=== PATIENT | male | born 1970 | race Caucasian/White ===

== ENCOUNTER 2019-04-06 06:39 | Day surgery (SDC) | payer OTHER ==
[~2019-04-06] VITALS: Ht 152.4 cm; Wt 70.0 kg
[~2019-04-06 06:39] MED LIST: SODIUM CHLORIDE 0.9% 1,000 ML IV ONE; SODIUM CHLORIDE 0.9% 1,000 ML ONE
[2019-04-06] MEDS ORDERED: LISI-661 PO (07:28)
[2019-04-06] MEDS ORDERED: FentaNYL CITRATE-PF 100 MCG/2 ML VIAL ONE (07:37)
[2019-04-06] MEDS ORDERED: MIDAZOLAM HCL 2 MG/2 ML VIAL ONE (07:37)
[2019-04-06] MEDS ORDERED: AMLO5TAB9 PO (07:45)
[2019-04-06] MEDS ORDERED: FAMO20 PO (07:45)
[2019-04-06] MEDS ORDERED: MYCO250C7 PO (07:45)
[2019-04-06] MEDS ORDERED: ATOR20TA86 PO (07:45)
[2019-04-06] MEDS ORDERED: LISI-662 PO (07:45)
[2019-04-06] MEDS ORDERED: MONT10TA21 PO (07:45)
[2019-04-06] MEDS ORDERED: ASPI-728 PO (07:45)
[2019-04-06] MEDS ORDERED: MethylPREDNISolone SOD SUCC 125 MG/2 ML VIAL ONE (09:02)
[2019-04-06] MEDS ORDERED: MethylPREDNISolone SOD SUCC 125 MG/2 ML VIAL IVP ONE (09:15)
[2019-04-06] MEDS ORDERED: ALBUTEROL SULFATE 2.5 MG/0.5 ML NEB SOLUTION NEB ONE (12:00)
[2019-04-06] MEDS ORDERED: LIDOCAINE 4% 50 ML SOLUTION TP ONE (12:00)
[2019-04-06] MEDS ORDERED: LIDOCAINE 2% 30 ML JELLY TP ONE (12:00)
[2019-04-06] MEDS ORDERED: BENZOCAINE 20% 50 MCG/SPRAY 57 GM TP ONE (12:00)
[2019-04-06] MEDS ORDERED: OXYGEN THERAPY IH SCH (20:00)
== END 2019-04-06 11:11 | disposition home or self-care (01) ==
LOC: SURGERY 06:39
PROVIDERS: ATTEND Internal Medicine Critical Care Medicine
DX: R05 Cough (principal); R04.2 Hemoptysis; J84.9 Interstitial pulmonary disease, unspecified; J47.9 Bronchiectasis, uncomplicated; J34.89 Other specified disorders of nose and nasal sinuses; J98.8 Other specified respiratory disorders; J38.4 Edema of larynx; B37.0 Candidal stomatitis; I10 Essential (primary) hypertension; E78.5 Hyperlipidemia, unspecified; Z79.899 Other long term (current) drug therapy; R19.00 Intra-abdominal and pelvic swelling, mass and lump, unspecified site
CPT/HCPCS: 31623; 31624; 71045; 87015; 87070 ×2; 87101; 87205; 87206; 87220; 87252 ×2; 88108; 88184; 88185; 88312; J2250; J2930; J3010; J7030

== ENCOUNTER 2020-10-17 06:32 | Day surgery (SDC) | payer OTHER ==
[2020-10-14 14:38] LABS: COVID AG,FIA SOURCE NASOPHARYNGEAL
[~2020-10-17] VITALS: Ht 160 cm; Wt 66.8 kg
[~2020-10-17 06:32] MED LIST changes: +AMLO-257 PO; +ASPI-1450 PO; +ATOR20TA86 PO; +FAMO20 PO; +LISI-894 PO; +MONT-35 PO; +MYCO250C27 PO; -SODIUM CHLORIDE 0.9% 1,000 ML ONE
[2020-10-17] MEDS ORDERED: ALBUTEROL SULFATE 2.5 MG/0.5 ML NEB SOLUTION NEB ONE (06:33)
[2020-10-17] MEDS ORDERED: BENZOCAINE 20% 50 MCG/SPRAY 57 GM TP ONE (06:33)
[2020-10-17] MEDS ORDERED: LIDOCAINE 2% 30 ML JELLY TP ONE (06:33)
[2020-10-17] MEDS ORDERED: LIDOCAINE 4% 50 ML SOLUTION TP ONE (06:33)
[2020-10-17] MEDS ORDERED: SODIUM CHLORIDE 0.9% 1,000 ML ONE (07:02)
[2020-10-17] MEDS ORDERED: BACL20TA PO (07:33)
[2020-10-17] MEDS ORDERED: ATOR20TA65 PO (07:33)
[2020-10-17] MEDS ORDERED: CHOL200016 PO (07:33)
[2020-10-17] MEDS ORDERED: MYCO500T5 PO (07:33)
[2020-10-17] MEDS ORDERED: MONT10TA32 PO (07:33)
[2020-10-17] MEDS ORDERED: FLUT16H NASAL (07:33)
[2020-10-17] MEDS ORDERED: LEVO-72 PO (07:33)
[2020-10-17] MEDS ORDERED: AMLO5TAB66 PO (07:33)
[2020-10-17] MEDS ORDERED: FAMO40TA7 PO (07:33)
[2020-10-17] MEDS ORDERED: GABA-1181 PO (07:33)
[2020-10-17] MEDS ORDERED: SILD20TA2 PO (07:33)
[2020-10-17] MEDS ORDERED: MIDAZOLAM HCL 5 MG/ML VIAL ONE (07:40)
[2020-10-17] MEDS ORDERED: FentaNYL CITRATE PF 100 MCG/2 ML VIAL ONE (07:40)
[2020-10-17] MEDS ORDERED: MethylPREDNISolone SOD SUCC 125 MG/2 ML VIAL IVP ONE (09:00)
[2020-10-17] MEDS ORDERED: MethylPREDNISolone SOD SUCC 125 MG/2 ML VIAL ONE (09:01)
[2020-10-17] MEDS ORDERED: OXYGEN THERAPY IH SCH (20:00)
== END 2020-10-17 10:40 | disposition home or self-care (01) ==
LOC: SURGERY 06:32
PROVIDERS: ATTEND Internal Medicine Critical Care Medicine
DX: R05 Cough (principal); R04.2 Hemoptysis; J84.9 Interstitial pulmonary disease, unspecified; J34.89 Other specified disorders of nose and nasal sinuses; J98.8 Other specified respiratory disorders; J38.4 Edema of larynx; B37.0 Candidal stomatitis; I10 Essential (primary) hypertension; M19.90 Unspecified osteoarthritis, unspecified site; E78.00 Pure hypercholesterolemia, unspecified; J45.909 Unspecified asthma, uncomplicated; M06.9 Rheumatoid arthritis, unspecified; Z87.442 Personal history of urinary calculi; Z79.899 Other long term (current) drug therapy; Z20.822 Contact with and (suspected) exposure to COVID-19
CPT/HCPCS: 31623; 31624; 71045; 87015; 87070; 87101; 87205; 87206; 87220; 87426; 88108; 88184; 88185; 88312; C9803; J2250; J2930; J3010; J7030; J7613; Z7610

== ENCOUNTER 2022-04-02 06:58 | Day surgery (SDC) | payer MEDICARE, OTHER ==
[~2022-04-02] VITALS: Ht 167.6 cm; Wt 69.5 kg
[~2022-04-02 06:58] MED LIST changes: -AMLO-257 PO; +AMLO5TAB66 PO; +APIX5TAB PO; -ASPI-1450 PO; +ATOR20TA65 PO; -ATOR20TA86 PO; +BACL20TA PO; +CHOL200059 PO; -FAMO20 PO; +FAMO40TA7 PO; +FLUT16SP NASAL; +GABA-1181 PO; -MONT-35 PO; +MONT-40 PO; -MYCO250C27 PO; +MYCO500T5 PO; +PRED-729 PO; +SILD20TA2 PO; -SODIUM CHLORIDE 0.9% 1,000 ML IV ONE; +SODIUM CHLORIDE 0.9% 1,000 ML ONE
[2022-04-02] MEDS ORDERED: SODIUM CHLORIDE 0.9% 1,000 ML IV ONE (07:15)
[2022-04-02 07:23] LABS: COVID AG,FIA SOURCE NASAL SWAB
[2022-04-02] MEDS ORDERED: MIDAZOLAM HCL 2 MG/2 ML VIAL ONE (07:41)
[2022-04-02] MEDS ORDERED: FentaNYL CITRATE PF 100 MCG/2 ML VIAL ONE (07:42)
[2022-04-02] MEDS ORDERED: MethylPREDNISolone SOD SUCC 125 MG/2 ML VIAL ONE (09:15)
[2022-04-02] MEDS ORDERED: MethylPREDNISolone SOD SUCC 125 MG/2 ML VIAL IVP ONE (09:30)
[2022-04-02] MEDS ORDERED: OXYGEN THERAPY IH SCH (20:00)
== END 2022-04-02 11:35 | disposition home or self-care (01) ==
LOC: SURGERY 06:58
PROVIDERS: ATTEND Internal Medicine Critical Care Medicine
DX: J38.4 Edema of larynx (principal); B37.0 Candidal stomatitis; Z20.822 Contact with and (suspected) exposure to COVID-19; Z79.01 Long term (current) use of anticoagulants; Z79.899 Other long term (current) drug therapy; Z98.890 Other specified postprocedural states
CPT/HCPCS: 31623; 88112; 87101; 87220; 87070; 31624; 94640; 71045; 87015; 87426; 93005; 87206; J3010; J2250; J2930; J7030; C9803

== ENCOUNTER 2024-09-10 06:35 | Day surgery (SDC) | payer MEDICARE, OTHER ==
[~2024-09-10] VITALS: Ht 160 cm; Wt 67.2 kg
[~2024-09-10 06:35] MED LIST changes: +SILD20TA14 PO; -SILD20TA2 PO; -SODIUM CHLORIDE 0.9% 1,000 ML ONE
[2024-09-10] MEDS ORDERED: LIDOCAINE 4% 50 ML SOLUTION TP ONE (06:36)
[2024-09-10] MEDS ORDERED: LIDOCAINE 2% 11 ML JELLY TP ONE (06:36)
[2024-09-10] MEDS ORDERED: BENZOCAINE 20% 50 MCG/SPRAY 57 GM TP ONE (06:36)
[2024-09-10] MEDS ORDERED: ALBUTEROL SULFATE 2.5 MG/0.5 ML NEB SOLUTION NEB ONE (06:36)
[2024-09-10] MEDS ORDERED: MIDAZOLAM HCL 2 MG/2 ML VIAL ONE (07:56)
[2024-09-10] MEDS ORDERED: FentaNYL CITRATE PF 100 MCG/2 ML VIAL ONE (07:56)
[2024-09-10] MEDS: SODIUM CHLORIDE 0.9% 1,000 ML IV ONE (08:35)
[2024-09-10 09:22] VITALS: PULSE 66; RESP 18; O2SAT 100
[2024-09-10] MEDS ORDERED: BUDE10.7 IH (09:44)
[2024-09-10] MEDS ORDERED: METO25XL PO (09:44)
[2024-09-10] MEDS ORDERED: FURO20TA5 PO (09:44)
[2024-09-10] MEDS ORDERED: POTA15TA11 PO (09:44)
[2024-09-10] MEDS ORDERED: ONDA-104 PO (09:44)
[2024-09-10] MEDS ORDERED: MIDO5TAB29 PO (09:44)
[2024-09-10] MEDS ORDERED: OMEP-148 PO (09:44)
[2024-09-10] MEDS ORDERED: CABE0.5T2 PO (09:44)
== END 2024-09-10 13:35 | disposition home or self-care (01) ==
LOC: SURGERY 06:35
PROVIDERS: ATTEND Internal Medicine Critical Care Medicine
DX: R05.3 Chronic cough (principal); J38.4 Edema of larynx; B37.0 Candidal stomatitis; J47.9 Bronchiectasis, uncomplicated; I49.1 Atrial premature depolarization; I45.10 Unspecified right bundle-branch block; E78.00 Pure hypercholesterolemia, unspecified; M19.90 Unspecified osteoarthritis, unspecified site; I10 Essential (primary) hypertension; J45.909 Unspecified asthma, uncomplicated; Z79.899 Other long term (current) drug therapy
CPT/HCPCS: 31623; 93005; 87206; 87101; 87220; 87070; 88108; 31624; 71045; 87015; J3010; J2250; J2919; J7613; Z7610